=== PATIENT | male | born 1975 | race Caucasian/White ===

== ENCOUNTER 2018-08-21 13:09 | Emergency (ER) | payer MEDICAID ==
[~2018-08-21] VITALS: Ht 177.8 cm; Wt 81.6 kg
[2018-08-21 13:28] VITALS: BP_SYST 163
--- NOTE | 2018-08-21 14:32 | NUR ---
Patient to ER [facility] [address] [facility] for evaluation. Side rails up. Assumed care of patient.
--- NOTE | 2018-08-21 14:33 | NUR ---
Naila GLYNN seeing patient in [facility].
[2018-08-21] MEDS ORDERED: ACETAMINOPHEN 325 MG TABLET PO ONE (15:00)
--- NOTE | 2018-08-21 15:01 | NUR ---
Patient was medicated with routine Tyleno as ordered. Patient had to be awoken for pain medication, rating pain scale 8/10.
[2018-08-21 15:35] VITALS: BP_SYST 142
--- NOTE | 2018-08-21 15:35 | NUR ---
Patient given written and verbal discharge instructions and verbalizes understanding. ER MD discussed with patient the results and treatment provided. Patient in stable condition. ID arm band removed. Rx of Tylenol and Ibuprofen given. Patient educated on pain management and to follow up with PMD. Pain Scale 3/10. Opportunity for questions provided and answered. Medication side effect fact sheet provided.
== END 2018-08-21 15:35 | disposition home or self-care (01) ==
LOC: SED 13:09
DX: S52.122A Displaced fracture of head of left radius, initial encounter for closed fracture (principal); W07.XXXA Fall from chair, initial encounter; Y93.89 Activity, other specified; Y92.89 Other specified places as the place of occurrence of the external cause; Y99.8 Other external cause status
CPT/HCPCS: 73090; 99283

== ENCOUNTER 2018-09-14 18:24 | Emergency (ER) | payer MEDICAID ==
[~2018-09-14] VITALS: Ht 180.3 cm; Wt 79.4 kg
[2018-09-14 18:24] VITALS: BP_SYST 131
[2018-09-14] MEDS ORDERED: IBUPROFEN 600 MG TABLET PO ONE (18:30)
[2018-09-14 19:10] VITALS: BP_SYST 120
== END 2018-09-14 19:10 ==
LOC: SED 18:24
DX: S52.122D Displaced fracture of head of left radius, subsequent encounter for closed fracture with routine healing (principal); W07.XXXD Fall from chair, subsequent encounter
CPT/HCPCS: 99283